=== PATIENT | female | born 1950 | race Caucasian/White ===

== ENCOUNTER 2016-05-26 06:14 | Day surgery (SDC) | payer OTHER ==
[2016-05-26] MEDS ORDERED: ceFAZolin 2 GM/50 ML 50 ML IV ONE (06:28)
[2016-05-26] MEDS ORDERED: LACTATED RINGERS 1,000 ML IV ONE (06:38)
[2016-05-26] MEDS ORDERED: BUPIVACAINE 0.25% PF 30 ML VIAL SUBQ ONE (07:54)
[2016-05-26] MEDS ORDERED: LIDOCAINE-MPF 2% 5 ML VIAL IM ONE (08:00)
[2016-05-26] MEDS ORDERED: MIDAZOLAM 2 MG/2 ML VIAL IVP ONE (08:00)
[2016-05-26] MEDS ORDERED: PROPOFOL 200 MG/20 ML VIAL IVP ONE (08:00)
[2016-05-26] MEDS ORDERED: fentaNYL 100 MCG/2 ML VIAL IVP ONE (08:00)
[2016-05-26] MEDS ORDERED: KETOROLAC 15 MG/ML VIAL ONE (08:40)
[2016-05-26] MEDS ORDERED: ACETAMINOPHEN 1,000 MG/100 ML 100 ML IV ONE (08:43)
[2016-05-26] MEDS: fentaNYL 100 MCG/2 ML VIAL ONE ×2 (08:50→08:58)
[2016-05-26] MEDS ORDERED: fentaNYL 100 MCG/2 ML VIAL ONE (09:04)
[2016-05-26] MEDS ORDERED: HYDROcod/ACETAM 5/325 MG TABLET ONE (09:40)
== END 2016-05-26 06:15 | disposition home or self-care (01) ==
PROC: 0QBP0ZZ Excision of Left Metatarsal, Open Approach (ICD-10-PCS; principal; 2016-05-26 07:30)
DX: M20.22 Hallux rigidus, left foot (principal)
CPT/HCPCS: 28289; A9270; J0131; J0690; J7120

== ENCOUNTER 2016-06-04 12:20 | Outpatient (CLI) | payer OTHER | END 2016-06-04 12:21 | disposition home or self-care (01) | DX: M19.072 Primary osteoarthritis, left ankle and foot (principal) ==

== ENCOUNTER 2017-02-04 12:50 | Outpatient (CLI) | payer OTHER ==
--- NOTE | 2017-02-09 14:01 | Mammography Report ---
DATE OF SERVICE: 02/04/2017 DIGITAL SCREENING MAMMOGRAM: 02/04/2017 CLINICAL INDICATION: A 66-year-old with history of late childbearing for screening. COMPARISON: 01/2016, 01/2015, 01/2013, 01/2012, 01/2011, 01/2010. TECHNIQUE: Routine CC and MLO projections were obtained of the breasts. FINDINGS: Parenchymal tissue within both breasts is heterogeneously dense, which may lower the sensi tivity of mammography; however, there are no dominant masses, suspicious microcalcifications, or secondary sign s of malignancy. In comparison to the previous studies, there are no significant changes. ASSESSMENT: NO MAMMOGRAPHIC EVIDENCE OF MALIGNANCY. NO SIGNIFICANT INTERVAL CHANGES. RECOMMENDATION: Screening mammography is recommended annually. BIRADS category 1 - Negative. STANDARD QUALIFYING STATEMENTS 1. This examination was reviewed with the aid of Computed-Aided Detection (CAD). 2. A negative or benign imaging report should not delay biopsy if clinically suspicious findings are present. Consider surgical consultation if warranted. More than 5% of cancers are not identified by imaging. 3. Dense breasts may obscure an underlying neoplasm. TD: 02/05/2017 22:33
== END 2017-02-04 12:51 | disposition home or self-care (01) ==
LOC: DI 12:50
PROVIDERS: ATTEND Obstetrics & Gynecology
DX: Z12.31 Encounter for screening mammogram for malignant neoplasm of breast (principal)
CPT/HCPCS: 77067

== ENCOUNTER 2017-09-24 13:40 | Outpatient (CLI) | payer OTHER ==
[2017-09-24] MEDS ORDERED: GADOBUTROL 7.5 MMOL/7.5 ML VIAL ONE (13:57)
[2017-09-24] MEDS ORDERED: GADOBUTROL 7.5 MMOL/7.5 ML VIAL IVP ONE (14:17)
--- NOTE | 2017-09-26 15:59 | MRI Report ---
Procedure Date: 09/24/2017 Accession Number: [id number] / [id number] Procedure: MRI - Brain W/WO CPT Code: FULL RESULT: EXAM: MRI BRAIN WITHOUT AND WITH CONTRAST EXAM DATE: 09/24/2017 02:26 PM. CLINICAL HISTORY: MIGRAINE AURA WITHOUT HEADACHE,OTHER LOCALIZED VIS. COMPARISON: None. TECHNIQUE: Multiplanar, multisequence T1-weighted and fluid-sensitive MR sequences of the brain were performed. Sequences optimized for routine evaluation. Other: None. IV Contrast: 7.5 cc Gadavist. FINDINGS: Brain Volume: Normal for age. Parenchyma: No acute hemorrhage, mass, or infarct. No significant morelos matter or white matter signal abnormality is identified. No abnormal enhancement. Ventricles/Cisterns: No hydrocephalus. No abnormal extra-axial fluid collection or hemorrhage. Orbits: Symmetric and unremarkable. Sella Turcica: The pituitary gland, cavernous sinuses, suprasellar cistern and optic chiasm are unremarkable. IAC: Symmetric and unremarkable. Vasculature: Normal signal flow void is seen in the major arterial structures at the skull base. The dural sinuses are patent and enhance normally. Sinuses: No acute sinus disease. Bones: No focal pathologic appearing marrow signal changes. Other: None. IMPRESSION: 1. Negative MRI of the brain without and with contrast. No acute abnormality. RADIA
== END 2017-09-24 13:41 | disposition home or self-care (01) ==
LOC: DI 13:40
PROVIDERS: ATTEND Psychiatry & Neurology Neurology
DX: G43.109 Migraine with aura, not intractable, without status migrainosus (principal); H53.453 Other localized visual field defect, bilateral; G40.89 Other seizures
CPT/HCPCS: 70553; A9585

== ENCOUNTER 2018-10-18 14:22 | Outpatient (CLI) | payer OTHER ==
--- NOTE | 2018-10-19 08:55 | Mammography Report ---
Reason: SCREENING MAMMO Procedure Date: 10/18/2018 Accession Number: [id number] / [id number] Procedure: MGS - Screening Mammo Dig Bilat CPT Code: FULL RESULT: EXAM: Screening Mammo Dig Bilat DATE: 10/18/2018 2:42 PM CLINICAL HISTORY: Routine screening TECHNIQUE: (B) - Bilateral CC and MLO views were obtained. COMPARISON: 02/04/2017, 02/04/2016, 01/22/2015 and 01/19/2013 PARENCHYMAL PATTERN: (D) - The breasts demonstrate heterogeneously dense fibroglandular parenchyma bilaterally. FINDINGS: No significant interval change. There are no suspicious masses, calcifications, or areas of distortion. IMPRESSION: Negative examination. BI-RADS category 1. RECOMMENDATION: (ANNUAL) - Recommend routine annual screening mammography. BI-RADS CATEGORY: (1) - Negative. STANDARD QUALIFYING STATEMENTS: 1. This examination was not reviewed with the aid of Computer-Aided Detection (CAD). 2. A negative or benign imaging report should not preclude biopsy if clinically suspicious findings are present. 3. Dense breasts may obscure an underlying neoplasm. 4. This examination was reviewed without the aid of 3D breast imaging (tomosynthesis).
== END 2018-10-18 14:23 | disposition home or self-care (01) ==
LOC: DI.S 14:22
DX: Z12.31 Encounter for screening mammogram for malignant neoplasm of breast (principal)
CPT/HCPCS: 77067

== ENCOUNTER 2018-12-09 12:39 | Outpatient (CLI) | payer OTHER ==
--- NOTE | 2018-12-09 16:26 | DEXA Report ---
Reason: SCR FOR OSTEOPOROSIS Procedure Date: 12/09/2018 Accession Number: [id number] / [id number] Procedure: DEX - Dexa Spine and/or Hip CPT Code: Final Report FULL RESULT: EXAM: Dexa Spine and/or Hip DATE: 12/09/2018 2:03 PM CLINICAL HISTORY: Postmenopausal, follow-up osteopenia TECHNIQUE: Dual energy x-ray absorptiometry (DXA) was performed on a [employer] System. Regions measured are the AP Spine, femoral neck, and if needed forearm. COMPARISON: 01/19/2012 In accordance with the International Society for Clinical Densitometry (ISCD) guidelines, data from previous exams may be reanalyzed using current recommendations and techniques. This is done to allow a more accurate basis for comparison with the current study. FINDINGS: The data for the lumbar spine is as follows: BMD (g/cm/cm) T-SCORE Z-SCORE REGION L1 0.911 -1.8 -0.3 L2 0.967 -1.9 -0.4 L3 1.094 -0.9 0.7 L4 1.008 -1.6 -0.1 TOTAL 0.997 -1.5 0.0 NOTE: All evaluable vertebrae are used for classification The data for the hip is as follows: BMD (g/cm/cm) T-SCORE Z-SCORE REGION Neck 0.741 -2.1 -0.6 TOTAL 0.824 -1.5 -0.2 NOTE: The femoral neck or total proximal femur, whichever is lowest, is used for classification. IMPRESSION: THE WHO CLASSIFICATION BASED ON THE INTERNATIONAL REFERENCE STANDARD IS OSTEOPENIA, REFERENCE LEFT FEMORAL NECK. THE FRACTURE RISK IS INCREASED. RECOMMENDATION: Patients with diagnosis of osteoporosis or osteopenia should have regular bone mineral density assessment. For those eligible for Medicare, routine testing is allowed once every 2 years. Testing frequency can be increased for patients who have rapidly progressing disease or for those who are receiving medical therapy to restore bone mass. COMMENT: World Health Organization (WHO) definitions for osteoporosis and osteopenia: NORMAL BMD: T-score at -1.0 or higher, fracture risk is low OSTEOPENIA BMD: T-score between -1.0 and -2.5, fracture risk is increased. OSTEOPOROSIS BMD: T-score at -2.5 or lower, fracture risk is high. National Osteoporosis Foundation recommends: 1. Obtain adequate dietary calcium (at least 1200 mg per day) and vitamin D (400-800 international units per day). 2. Participate, as appropriate, in regular weightbearing and muscle-strengthening exercise. 3. Avoid tobacco use and reduce alcohol and caffeine intake. 4. For more detailed information see the website at www.NOF.org.
== END 2018-12-09 12:40 | disposition home or self-care (01) ==
LOC: DI 12:39
PROVIDERS: ATTEND Internal Medicine
DX: Z13.820 Encounter for screening for osteoporosis (principal); M85.89 Other specified disorders of bone density and structure, multiple sites
CPT/HCPCS: 77080

== ENCOUNTER 2020-01-24 13:56 | Outpatient (CLI) | payer MEDICARE, OTHER ==
--- NOTE | 2020-01-25 09:38 | Mammography Report ---
BILATERAL DIGITAL SCREENING MAMMOGRAM 3D/2D: 01/24/2020 CLINICAL: Routine screening. Comparison is made to exams dated: 10/18/2018 mammogram, 02/04/2017 mammogram, 02/04/2016 mammogram, 01/22/2015 mammogram, 01/19/2013 mammogram, and 01/19/2012 mammogram - [facility]. The tissue of both breasts is heterogeneously dense. This may lower the sensitivity of mammography. No significant masses, calcifications, or other findings are seen in either breast. There has been no significant interval change. IMPRESSION: NEGATIVE There is no mammographic evidence of malignancy. A 1 year screening mammogram is recommended. This exam was interpreted at Station ID: [id number]. NOTE: For mammograms, a report in lay terms will be sent to the patient. Approximately 15% of breast malignancies will not be visualized mammographically. In the management of a palpable breast mass, a negative mammogram must not discourage biopsy of a clinically suspicious lesion. Electronically Signed By: Prashant Min M.D. ddp/penrad:01/24/2020 14:51:48 ACR BI-RADS Category 1: Negative 3341F PARENCHYMAL PATTERN: (D) - The breast(s) demonstrate(s) heterogeneously dense fibroglandular antionette henry. BI-RADS CATEGORY: (1) - 1 RECOMMENDATION: (ANNUAL) - Recommend routine annual screening mammography. [id number] 1 year screening LATERALITY: (B)
== END 2020-01-24 13:57 | disposition home or self-care (01) ==
LOC: DI 13:56
DX: Z12.31 Encounter for screening mammogram for malignant neoplasm of breast (principal)
CPT/HCPCS: 77067

== ENCOUNTER 2020-02-14 08:58 | Day surgery (SDC) | payer MEDICARE, OTHER ==
[2020-02-14] MEDS ORDERED: LACTATED RINGERS 1,000 ML IV ONE ×2 (09:49→11:26)
[2020-02-14] MEDS ORDERED: fentaNYL 250 MCG/5 ML VIAL ONE (10:51)
[2020-02-14] MEDS ORDERED: MIDAZOLAM 2 MG/2 ML VIAL ONE ×2 (10:51→11:08)
[2020-02-14 12:00] VITALS: BP 106/70
--- OUTSIDE RECORDS SUMMARY | 2020-02-21 00:35 | EXTERNAL MEDICAL SUMMARY RPT | Continuity of Care Document ---
:1950 Demographics Phone Unavailable Preferred Language Unknown Marital Status Unknown Religion Affiliation Unknown Race Unknown Ethnic Group Unknown Author Organization [facility] Address [address] [phone] Phone Care Team Providers Name Role Phone Marin Unavailable Unavailable Wright Unavailable Unavailable Problems date description facility 2012-07-07 15:16 CHEST PAIN NOS [facility] 2012-08-19 10:46 FAMILY HX-CONDITION NEC [facility] 2012-08-19 10:46 SCREEN VIRAL DISEASES NEC [facility] 2012-08-19 10:46 SCREEN FOR OTH SPECIF CONDITIONS [facility] 2013-01-19 14:22 ASYMPT POSTMENOPAUSAL STATUS [facility] (AGE-RELATED) (NATURAL) 2013-01-19 14:22 OTH SCREEN MAMMO-MALIGN NEOPLASM [facility] OF BREAST 2015-01-22 14:49 ENCNTR SCREEN MAMMOGRAM FOR [facility] MALIGNANT NEOPLASM OF BREAST 2015-10-29 11:11 TINEA UNGUIUM [facility] 2015-10-29 11:11 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 [facility] THERAPY 2016-02-04 14:03 ENCNTR SCREEN MAMMOGRAM FOR [facility] MALIGNANT NEOPLASM OF BREAST 2016-05-26 06:14 HALLUX RIGIDUS, LEFT FOOT [facility] 2016-06-04 12:20 PRIMARY OSTEOARTHRITIS, LEFT ANKLE [facility] AND FOOT 2017-02-04 12:50 ENCNTR SCREEN MAMMOGRAM FOR [facility] MALIGNANT NEOPLASM OF BREAST 2017-09-24 13:40 OTHER SEIZURES [facility] 2017-09-24 13:40 MIGRAINE WITH AURA, 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 STRUCTURE, MULTIPLE SITES 2018-12-09 12:39 ENCOUNTER FOR SCREENING FOR [facility] OSTEOPOROSIS Allergies date description facility No Known Drug Allergies [facility] NO ALLERGY INFORMATION AVAILABLE [facility] No Known Drug Allergies [facility] NO KNOWN ENVIRONMENTAL ALLERGIES [facility] CODEINE [facility] LISINOPRIL [facility] QUININE [facility] SIMVASTATIN [facility] TETRACYCLINE [facility] VENOM-YELLOW HORNET PROTEIN [facility] NO KNOWN ALLERGIES [facility] PHENOBARBITAL [facility] Social History date description facility [id number]
== END 2020-02-14 08:59 | disposition home or self-care (01) ==
LOC: SDS 08:58
PROVIDERS: ATTEND Surgery
PROC: 0DBH8ZZ Excision of Cecum, Via Natural or Artificial Opening Endoscopic (ICD-10-PCS; principal; 2020-02-14 10:15)
DX: R19.5 Other fecal abnormalities (principal); D12.0 Benign neoplasm of cecum; K64.8 Other hemorrhoids; K57.30 Diverticulosis of large intestine without perforation or abscess without bleeding
CPT/HCPCS: 45380; J3010; J7120; 88305

== ENCOUNTER 2020-12-16 08:48 | Outpatient (CLI) | payer MEDICARE, OTHER ==
--- NOTE | 2020-12-16 11:50 | Ultrasound Report ---
PROCEDURE: Pelvic w/Transvaginal INDICATIONS: FAM HIST OF OVARIAN CA TECHNIQUE: Real-time scanning was performed of the pelvic organs, with image documentation. Additional endovagi nal scanning was necessary due to incomplete visualization of the adnexal and endometrial structures by transabdominal scanning. COMPARISON: None. FINDINGS: No pathologic free abdominal or pelvic fluid. Uterus: Uterus is anteverted and is normal in size at 5.8 x 2.6 x 4.6 cm. The endometrium measures 2.1 mm in combined thickness. Myometrium is homogeneous in echotexture. No gross endometrial mass or fluid. Ovaries: Right ovary measures 2.2 x 1.1 x 1 cm in size. Left ovary measures 2 x 1.1 x 0.9 cm in size . No solid-appearing ovarian lesion. Normal blood flow is seen in bilateral ovaries on color Doppler images. IMPRESSION: Slightly limited study due to overlying bowel gas. No gross abnormality is seen in uterus and bilater al ovaries. Reviewed by: Cristian Jeter MD on 12/16/2020 11:49 AM PST Approved by: Cristian Jeter MD on 12/16/2020 11:49 AM PST Station ID: [id number]
== END 2020-12-16 08:49 | disposition home or self-care (01) ==
LOC: DI 08:48
PROVIDERS: ATTEND Nurse Practitioner
DX: Z80.41 Family history of malignant neoplasm of ovary (principal)

== ENCOUNTER 2020-12-16 08:52 | Outpatient (CLI) | payer MEDICARE, OTHER ==
--- NOTE | 2020-12-16 14:46 | DEXA Report ---
PROCEDURE: Dexa Spine and/or Hip INDICATIONS: OSTEOPOROSIS TECHNIQUE: Dual energy x-ray absorptiometry (DXA) was performed on a [employer] System. Regions measur ed are the AP Spine, femoral neck, and if needed forearm. COMPARISON: None. FINDINGS: Lumbar Spine: Bone Mineral Density 0.984 g/cm/cm,T score -1.6, osteopenia Left Hip: Bone Mineral Density 0.793 g/cm/cm,T score -1.7, osteopenia Left Femoral Neck: Bone Mineral Density 0.765 g/cm/cm, T score -2.0, osteopenia (T score greater or equal to -1.0: NORMAL) (T score from -1.1 to -2.4: OSTEOPENIA) (T score less than or equal to -2.5 to: OSTEOPOROSIS) Impression: Bone mineral density consistent with osteopenia Patients with diagnosis of osteoporosis or osteopenia should have regular bone mineral density assess ment. For those eligible for Medicare, routine testing is allowed once every 2 years. Testing frequ ency can be increased for patients who have rapidly progressing disease or for those who are receivin g medical therapy to restore bone mass. Reviewed by: Raghu Vela on 12/16/2020 2:44 PM PST Approved by: Raghu Vela on 12/16/2020 2:44 PM PST Station ID: [id number]
== END 2020-12-16 08:53 | disposition home or self-care (01) ==
LOC: DI 08:52
DX: M85.89 Other specified disorders of bone density and structure, multiple sites (principal); Z80.41 Family history of malignant neoplasm of ovary

== ENCOUNTER 2021-02-05 13:45 | Outpatient (CLI) | payer MEDICARE, OTHER ==
--- NOTE | 2021-02-06 12:05 | Mammography Report ---
BILATERAL DIGITAL SCREENING MAMMOGRAM 3D/2D: 02/05/2021 CLINICAL: Routine screening. Comparison is made to exams dated: 01/24/2020 mammogram, 10/18/2018 mammogram, 02/04/2017 mammogram, 02/04/2016 mammogram, 01/19/2013 mammogram, and 01/22/2015 mammogram - [facility]. The tissue of both breasts is heterogeneously dense. This may lower the sensitivity of mammography. No significant masses, calcifications, or other findings are seen in either breast. There has been no significant interval change. IMPRESSION: NEGATIVE There is no mammographic evidence of malignancy. A 1 year screening mammogram is recommended. This exam was interpreted at Station ID: [id number]. NOTE: For mammograms, a report in lay terms will be sent to the patient. Approximately 15% of breast malignancies will not be visualized mammographically. In the management of a palpable breast mass, a negative mammogram must not discourage biopsy of a clinically suspicious lesion. Electronically Signed By: Valentin Ortiz M.D., jr/david:02/06/2021 08:39:46 ACR BI-RADS Category 1: Negative 3341F PARENCHYMAL PATTERN: (D) - The breast(s) demonstrate(s) heterogeneously dense fibroglandular antionette henry. BI-RADS CATEGORY: (1) - 1 RECOMMENDATION: (ANNUAL) - Recommend routine annual screening mammography. [id number] 1 year screening LATERALITY: (B)
== END 2021-02-05 13:46 | disposition home or self-care (01) ==
LOC: DI.S 13:45
PROVIDERS: ATTEND Nurse Practitioner
DX: Z12.31 Encounter for screening mammogram for malignant neoplasm of breast (principal)

== ENCOUNTER 2022-02-06 11:23 | Outpatient (CLI) | payer MEDICARE, OTHER ==
--- NOTE | 2022-02-10 13:00 | Mammography Report ---
BILATERAL DIGITAL SCREENING MAMMOGRAM 3D/2D WITH EXAGGERATED CC: 02/06/2022 CLINICAL: Routine screening. Comparison is made to exams dated: 02/05/2021 mammogram, 01/24/2020 mammogram, 10/18/2018 mammogram, 02/04/2017 mammogram, 02/04/2016 mammogram, and 01/22/2015 mammogram - [facility]. Both breasts are heterogeneously dense, which may obscure small masses (category c / 51-75% glandular tissue). No significant masses, calcifications, or other findings are seen in either breast. There has been no significant interval change. IMPRESSION: NEGATIVE There is no mammographic evidence of malignancy. A 1 year screening mammogram is recommended. Based on the Tyrer Cuzick model (a risk assessment model) the patients lifetime risk is 7.0% and her 10 year risk is 4.4%. According to the ACR, ACS, and NCCN guidelines, an annual breast MRI exam nuvia g with mammogram is recommended if the patients lifetime risk is 20% or greater. This exam was interpreted at Station ID: [id number]. NOTE: For mammograms, a report in lay terms will be sent to the patient. Approximately 15% of breast malignancies will not be visualized mammographically. In the management of a palpable breast mass, a negative mammogram must not discourage biopsy of a clinically suspicious lesion. Electronically Signed By: Patel Reynolds M.D. atmisael/penrad:02/06/2022 16:21:35 ACR BI-RADS Category 1: Negative 3341F PARENCHYMAL PATTERN: (D) - The breast(s) demonstrate(s) heterogeneously dense fibroglandular antionette henry. BI-RADS CATEGORY: (1) - 1 RECOMMENDATION: (ANNUAL) - Recommend routine annual screening mammography. [id number] 1 year screening LATERALITY: (B)
== END 2022-02-06 11:24 | disposition home or self-care (01) ==
LOC: DI 11:23
DX: Z12.31 Encounter for screening mammogram for malignant neoplasm of breast (principal)

== ENCOUNTER 2023-01-18 10:37 | Outpatient (CLI) | payer MEDICARE, OTHER ==
--- NOTE | 2023-01-19 19:09 | DEXA Report ---
PROCEDURE: Dexa Spine and/or Hip INDICATIONS: POST MENOPAUSAL FAM HIST OF OVARIAN CA TECHNIQUE: Dual energy x-ray absorptiometry (DXA) was performed on a [employer] System. Regions measur ed are the AP Spine, femoral neck, and if needed forearm. COMPARISON: DEXA scan on December 16, 2020 FINDINGS: Lumbar Spine: Bone Mineral Density 0.975 g/cm/cm,T score -1.7. There has been no statistically significant change in bone mineral density since the prior study. Osteopenia. Left Femoral Neck: Bone Mineral Density 0.711 g/cm/cm, T score -2.3. There has been no statistically significant change in bone mineral density since the prior study. Osteopenia. Left Hip: Bone Mineral Density 0.809 g/cm/cm, T score -1.6. There has been no statistically significant change in bone mineral density since the prior study. Osteopenia. (T score greater or equal to -1.0: NORMAL) (T score from -1.1 to -2.4: OSTEOPENIA) (T score less than or equal to -2.5 to: OSTEOPOROSIS) Impression: By WHO criteria, this patient has low bone density (osteopenia). No statistical interval change in bone minteral density of the lumbar spine. No statistical interval change in bone minteral density of the hip. Patients with diagnosis of osteoporosis or osteopenia should have regular bone mineral density assess ment. For those eligible for Medicare, routine testing is allowed once every 2 years. Testing frequ ency can be increased for patients who have rapidly progressing disease or for those who are receivin g medical therapy to restore bone mass. Reviewed by: Vince Mack MD on 01/19/2023 7:08 PM PST Approved by: Vince Mack MD on 01/19/2023 7:08 PM PST Station ID: [id number]
== END 2023-01-18 10:38 | disposition home or self-care (01) ==
LOC: DI 10:37
PROVIDERS: ATTEND Nurse Practitioner
DX: Z78.0 Asymptomatic menopausal state (principal); M85.89 Other specified disorders of bone density and structure, multiple sites

== ENCOUNTER 2023-01-19 13:35 | Outpatient (CLI) | payer MEDICARE, OTHER ==
--- NOTE | 2023-01-20 09:24 | Mammography Report ---
BILATERAL DIGITAL SCREENING MAMMOGRAM 3D/2D: 01/19/2023 CLINICAL: Routine screening. Comparison is made to exams dated: 02/06/2022 mammogram, 02/05/2021 mammogram, and 01/24/[address] [facility]. Both breasts are heterogeneously dense, which may obscure small masses (category c / 51-75% glandular tissue). No significant masses, calcifications, or other findings are seen in either breast. There has been no significant interval change. IMPRESSION: NEGATIVE There is no mammographic evidence of malignancy. A 1 year screening mammogram is recommended. Based on the Tyrer Cuzick model (a risk assessment model) the patients lifetime risk is 6.6% and her 10 year risk is 4.5%. According to the ACR, ACS, and NCCN guidelines, an annual breast MRI exam nuvia g with mammogram is recommended if the patients lifetime risk is 20% or greater. This exam was interpreted at Station ID: [id number]. NOTE: For mammograms, a report in lay terms will be sent to the patient. Approximately 15% of breast malignancies will not be visualized mammographically. In the management of a palpable breast mass, a negative mammogram must not discourage biopsy of a clinically suspicious lesion. Electronically Signed By: Fareed solo/david:01/19/2023 16:12:16 letter sent: No_Letter ACR BI-RADS Category 1: Negative 3341F PARENCHYMAL PATTERN: (D) - The breast(s) demonstrate(s) heterogeneously dense fibroglandular antionette henry. BI-RADS CATEGORY: (1) - 1 Mammogram [id number] 1 year screening LATERALITY: (B)
== END 2023-01-19 13:36 | disposition home or self-care (01) ==
LOC: DI 13:35
DX: Z12.31 Encounter for screening mammogram for malignant neoplasm of breast (principal); R92.333 Mammographic heterogeneous density, bilateral breasts

== ENCOUNTER 2023-01-25 15:00 | Outpatient (CLI) | payer MEDICARE, OTHER ==
--- NOTE | 2023-01-25 17:39 | Ultrasound Report ---
PROCEDURE: Pelvic w/Transvaginal INDICATIONS: POST MENOPAUSAL FAM HIST OF OVARIAN CA TECHNIQUE: Real-time scanning was performed of the pelvic organs, with image documentation. Additional endovagi nal scanning was necessary due to incomplete visualization of the adnexal and endometrial structures by transabdominal scanning. COMPARISON: None. FINDINGS: Uterus: Uterus is anteverted, retroflexed, and normal in size at 6.5 x 2.6 x 4.0 cm. The myometrium is heterogeneous without dominant mass.. The endometrium measures 2.2 mm in combined thickness. No rmal vascular flow. Ovaries: Neither ovary was seen. No adnexal masses are seen. Other: No pathologic free abdominal or pelvic fluid. IMPRESSION: 1. Heterogeneous but normal size uterus for postmenopausal female. 2. Nonvisualization of either ovary, not unexpected at the patient's age. Reviewed by: Rissa Alford MD on 01/25/2023 5:37 PM PST Approved by: Rissa Alford MD on 01/25/2023 5:37 PM PST Station ID: [id number]
== END 2023-01-25 15:01 | disposition home or self-care (01) ==
LOC: DI 15:00
PROVIDERS: ATTEND Nurse Practitioner
DX: Z78.0 Asymptomatic menopausal state (principal); M85.80 Other specified disorders of bone density and structure, unspecified site; Z80.41 Family history of malignant neoplasm of ovary